=== PATIENT | male | born 1985 | race American Indian/Alaskan Native ===

== ENCOUNTER 2021-07-16 08:49 | Emergency (ER) | payer SELFPAY ==
[2021-07-16 09:07] VITALS: BP 114/86
--- NOTE | 2021-07-16 09:25 | Emergency Department Report ---
ED General Adult HPI - General Chief complaint: Earache Stated complaint: POSS EAR INFECTION/KNOT ON RGHT SIDE OD NECK Source: patient Mode of arrival: Ambulatory Limitations: No Limitations - History of Present Illness Initial comments: The patient was evaluated in the emergency department for symptoms described in the history of present illness. He/she was evaluated in the context of the global COVID-19 pandemic, which necessitated consideration that the patient might be at risk for infection with the virus that causes COVID-19. Institutional protocols and algorithms that pertain to the evaluation of patients at risk for COVID-19 are in a state of rapid change based on information released by regulatory bodies including the CDC and federal and state organizations. These policies and algorithms were followed during the patient's care in the emergency department. Please note that these policies, procedures and recommendations changed on a rapid basis. 35-year-old -[place] male presents to the emergency room for right earlobe swelling pain and right lymphadenopathy. Patient states that he had a new earring placed a couple days ago in since then he has been having swelling of the lower earlobe and now having a knot on the back of his ear and neck. Patient denies any fever. Patient does endorse he has a history of diabetes and currently on no meds. Patient states he is relocated from [place] here. Patient denies any fever no chills did have some drainage from the earlobe. Onset/Timin -: days(s) Location: neck Radiation: non-radiation Severity scale (0 -10): 8 Quality: stabbing, aching Consistency: intermittent Improves with: none Worsens with: movement Associated Symptoms: denies other symptoms Treatments Prior to Arrival: none - Related Data Previous Rx's Medication Instructions Recorded Last Taken Type Amoxicillin/K Clav Tab [Augmentin 1 tab PO Q12HR 7 Days #14 tab 07/16/21 Unknown Rx 875 mg] Ibuprofen [Motrin 600 MG tab] 600 mg PO Q8H PRN #21 tablet 07/16/21 Unknown Rx Allergies Allergy/AdvReac Type Severity Reaction Status Date / Time beeswax Allergy Hives Verified 07/16/21 09:07 ED Review of Systems ROS: Stated complaint: POSS EAR INFECTION/KNOT ON RGHT SIDE OD NECK Other details as noted in HPI Comment: All other systems reviewed and negative ED Past Medical Hx - Past Medical History Previous Medical History?: No - Surgical History Past Surgical History?: Yes Additional Surgical History: right wrist - Social History Smoking Status: Current Every Day Smoker Substance Use Type: None - Medications Home Medications: Home Medications Medication Instructions Recorded Confirmed Last Taken Type Amoxicillin/K Clav Tab [Augmentin 1 tab PO Q12HR 7 Days #14 tab 07/16/21 Unknown Rx 875 mg] Ibuprofen [Motrin 600 MG tab] 600 mg PO Q8H PRN #21 tablet 07/16/21 Unknown Rx ED Physical Exam - General Limitations: No Limitations General appearance: alert, in no apparent distress - Head Head exam: Present: atraumatic, normocephalic - Eye Eye exam: Present: normal appearance - Expanded ENT Exam Expanded 1 - Right earlobe swelling tenderness and redness. - Neck Neck exam: Present: full ROM, lymphadenopathy (Right side of neck) - Respiratory Respiratory exam: Absent: respiratory distress, chest wall tenderness, accessory muscle use - Cardiovascular Cardiovascular Exam: Present: regular rate - Extremities Exam Extremities exam: Present: normal inspection, full ROM - Back Exam Back exam: Present: normal inspection, full ROM - Neurological Exam Neurological exam: Present: alert, oriented X3, normal gait - Psychiatric Psychiatric exam: Present: normal affect, normal mood - Skin Skin exam: Present: warm, dry, intact, normal color. Absent: rash ED Course Vital Signs 07/16/21 09:02 Temperature 97.7 F Pulse Rate 79 Respiratory 20 Rate Blood Pressure 114/86 O2 Sat by Pulse 100 Oximetry ED Medical Decision Making - Medical Decision Making 35-year-old -[place] male presents to the emergency room for right earlobe swelling pain and right lymphadenopathy. Patient states that he had a new earring placed a couple days ago in since then he has been having swelling of the lower earlobe and now having a knot on the back of his ear and neck. Patient denies any fever. Patient does endorse he has a history of diabetes and currently on no meds. Patient states he is relocated from [place] here. Patient denies any fever no chills did have some drainage from the earlobe. Cellulitis of the right earlobe patient be placed on Augmentin ibuprofen and instructed to follow-up with outpatient provider for management of his diabetes. Critical care attestation.: If time is entered above; I have spent that time in minutes in the direct care of this critically ill patient, excluding procedure time. ED Disposition Clinical Impression: Cellulitis of right earlobe Disposition: HOME / SELF CARE / HOMELESS Is pt being admited?: No Does the pt Need Aspirin: No Condition: Stable Instructions: Cellulitis, Adult, [id number] Additional Instructions: Complete antibiotics as prescribed. Pain medication as needed. Warm compress to earlobe will help. Prescriptions: Amoxicillin/K Clav Tab [Augmentin 875 mg] 1 tab PO Q12HR 7 Days #14 tab Ibuprofen [Motrin 600 MG tab] 600 mg PO Q8H PRN #21 tablet PRN Reason: Pain Referrals: [facility] [Provider Group] - 3-5 Days Forms: Work/School Release Form(ED) Time of Disposition: 09:27
== END 2021-07-16 09:30 | disposition home or self-care (01) ==
LOC: ED 08:49
DX: H60.11 Cellulitis of right external ear (principal); Z98.890 Other specified postprocedural states; F17.200 Nicotine dependence, unspecified, uncomplicated; Z91.030 Bee allergy status
CPT/HCPCS: 99282